=== PATIENT | male | born 1995 | race Caucasian/White ===

== ENCOUNTER 2016-05-04 12:32 | Emergency (ER) | payer SELFPAY ==
[2016-05-04 13:01] VITALS: BP 131/82
[2016-05-04 14:22] LABS: Basophils % (Auto) 0.4 % (0.0-1.8); Eosinophils % (Auto) 1.6 % (0.0-4.3); Hematocrit 45.4 % (35.5-45.6); Mean Corpuscular HGB Conc 33 % (32-34); Mean Corpuscular Hemoglobin 28 pg (28-32); Mean Corpuscular Volume 84 fl (84-94); Platelet Count 162 K/mm3 (140-440); Red Blood Count 5.39 M/mm3 (3.65-5.03); Red Cell Distribution Width 13.7 % (13.2-15.2); White Blood Count 12.8 K/mm3 (4.5-11.0)
[2016-05-04 14:54] LABS: Anion Gap 17 mmol/L; Blood Urea Nitrogen 11 mg/dL (9-20); Calcium 9.3 mg/dL (8.4-10.2); Carbon Dioxide 25 mmol/L (22-30); Chloride 103.2 mmol/L (98-107); Glucose 85 mg/dL (75-100); Sodium 141 mmol/L (137-145)
[2016-05-04 15:25] LABS: Bacteria,Urine 1+ /HPF (Negative); Bilirubin,Urine NEG (Negative); Blood,Urine NEG (Negative); Ketones,Urine NEG (Negative); Leukocyte Esterase,Urine TR (Negative); Mucus,Urine FEW /HPF; Nitrite,Urine NEG (Negative); Protein,Urine <15 mg/dL mg/dL (Negative); Urobilinogen,Urine < 2.0 mg/dL (<2.0)
--- NOTE | 2016-05-05 14:43 | ED Elopement Review ---
ED Pt Elopement review - Results review Lab results: Laboratory Tests 05/04/16 05/04/16 05/04/16 14:01 14:01 14:29 WBC 12.8 H RBC 5.39 H Hgb 15.0 Hct 45.4 MCV 84 MCH 28 MCHC 33 RDW 13.7 Plt Count 162 Lymph % (Auto) 13.9 [place] % (Auto) 4.1 Eos % (Auto) 1.6 Baso % (Auto) 0.4 Lymph # 1.8 [place] # 0.5 Eos # 0.2 Baso # 0.1 Seg Neutrophils % 80.0 H Seg Neutrophils # 10.2 H Sodium 141 Potassium 4.0 Chloride 103.2 Carbon Dioxide 25 Anion Gap 17 BUN 11 Creatinine 1.0 Estimated GFR > 60 BUN/Creatinine Ratio 11.00 Glucose 85 Calcium 9.3 Urine Color Yellow Urine Turbidity Clear Urine pH 7.0 Ur Specific [place] 1.019 Urine Protein <15 mg/dl Urine Glucose (UA) Neg Urine Ketones Neg Urine Blood Neg Urine Nitrite Neg Urine Bilirubin Neg Urine Urobilinogen < 2.0 Ur Leukocyte Esterase Tr Urine WBC (Auto) 5.0 Urine RBC (Auto) 4.0 Urine Bacteria (Auto) 1+ Urine Mucus Few - Call Back decision Pt Call Back Decision: No action required
== END 2016-05-04 20:29 | disposition left against medical advice (07) ==
LOC: ED 12:32
DX: K46.9 Unspecified abdominal hernia without obstruction or gangrene (principal); Z53.21 Procedure and treatment not carried out due to patient leaving prior to being seen by health care provider
CPT/HCPCS: 36415; 80048; 81001; 85025

== ENCOUNTER 2016-07-04 16:03 | Emergency (ER) | payer SELFPAY ==
--- NOTE | 2016-07-04 20:19 | Emergency Department Report ---
HPI - General Chief Complaint: Urogenital-Male Time Seen by Provider: 07/04/16 20:07 - HPI HPI: Patient is a 20-year-old male who presents to ED complaining of yellowish penile discharge 3 days. Patient states he had a recent sexual intercourse unprotected with a partner. Patient admits mild burning with urination. Patient denies fever/chills/nausea/vomiting status/scrotal pain or testicular pain/abdominal pain, constipation or diarrhea. ED Past Medical Hx - Past Medical History Previous Medical History?: Yes Additional medical history: right inquinal hernia - Surgical History Past Surgical History?: No - Social History Smoking Status: Current Every Day Smoker Substance Use Type: Alcohol, Marijuana - Medications Home Medications: Home Medications Medication Instructions Recorded Confirmed Last Taken Type metroNIDAZOLE [Flagyl] 500 mg PO ONCE #4 tab 07/04/16 Unknown Rx ED Review of Systems ROS: Stated complaint: ABD PAIN /GROIN PAIN Other details as noted in HPI Constitutional: denies: chills, fever Eyes: denies: eye pain, eye discharge, vision change ENT: denies: ear pain, throat pain, dental pain, hearing loss, epistaxis, congestion Respiratory: denies: cough, shortness of breath, SOB with exertion, SOB at rest , wheezing Cardiovascular: denies: chest pain, palpitations, edema Endocrine: no symptoms reported Gastrointestinal: denies: abdominal pain, nausea, vomiting, diarrhea, constipation, hematemesis, melena, hematochezia Genitourinary: denies: urgency, dysuria, frequency, hematuria, testicular pain, testicular mass Musculoskeletal: denies: back pain, joint swelling, arthralgia, myalgia Skin: denies: rash, lesions, pruritus Neurological: denies: headache, weakness, numbness, paresthesias, confusion, abnormal gait, vertigo Psychiatric: denies: anxiety, depression, auditory hallucinations, visual hallucinations, suicidal thoughts Hematological/Lymphatic: denies: easy bleeding, easy bruising, swollen glands Physical Exam - Physical Exam Vital Signs: Vital Signs 07/04/16 16:36 Temperature 98.8 F Pulse Rate 60 Respiratory 20 Rate Blood Pressure 122/72 O2 Sat by Pulse 100 Oximetry Physical Exam: GENERAL: Alert and oriented x3, no apparent distress, Normal Gait, atraumatic. HEAD: Head is normocephalic and a-traumatic. EYES: Extra ocular muscles are intact. Pupils are equal, round, and reactive to light and accommodation. EARS: symetrical, atraumatic, non tender,gross auditory nml bilaterally. NOSE: Nose symetrical, Nontender,Nares appeared normal. MOUTH:Mouth is well hydrated and without lesions. Patent airways. NECK: Supple. Non edematous, No carotid bruits. No lymphadenopathy or thyromegaly. LUNGS: Symetrical with respiration, No wheezing, no rales or crackles, CTAB. HEART: S1, S2 present, regular rate and rhythm without murmur, no rubs, no gallops. ABDOMEN: No organomegaly was noted,Positive bowel sounds, soft, and non- distended. . Nontender to palpation on all Quadrants, NO CVA tenderness. UROGENITAL: Circumcised penis, No scrotal mass, Scrotum non tender to palpation bilaterally, no hernia, no scars or penile discharge. EXTREMITIES/MUSCULOSKELETAL: No cyanosis, clubbing, rash, lesions or edema. Full ROM bilaterally. NEUROLOGIC: No focal Deficit, Cranial nerves II through XII are grossly intact. No loss of sensation, SKIN: Warm and dry, No lesions, No ulceration or induration present. ED Course Vital Signs 07/04/16 16:36 Temperature 98.8 F Pulse Rate 60 Respiratory 20 Rate Blood Pressure 122/72 O2 Sat by Pulse 100 Oximetry ED Medical Decision Making - Medical Decision Making 20-year-old female presents with STD exposure ED course: Urinalysis ordered. Urine chlamydia and gonorrhea tests ordered. UA findings show positive RBC, leukocyte esterase positive, elevated white blood cell. Discussed findings with patient. Discussed the patient he would be prophylactically treated for most common STDs which are gonorrhea, chlamydia and trichomoniasis. Patient received 250 mg of Rocephin, 1 g of azithromycin and a prescription for Flagyl 2 g Discussed home medication of metronidazole. Discussed the patient and follow up with her Department of primary care for further STD testing. Vital signs stable. Patient is in no acute distress. Critical care attestation.: If time is entered above; I have spent that time in minutes in the direct care of this critically ill patient, excluding procedure time. ED Disposition Clinical Impression: Exposure to STD, Urethritis Disposition: DISCHARGED TO HOME OR SELFCARE Is pt being admited?: No Does the pt Need Aspirin: No Condition: Stable Instructions: Nonspecific Urethritis in Men (ED), Safe Sex (ED), Sexually Transmitted Diseases (ED) Additional Instructions: Follow-up with the health department or your primary care physician. Take medication as prescribed. Prescriptions: metroNIDAZOLE [Flagyl] 500 mg PO ONCE #4 tab Referrals: PRIMARY CARE,MD [Primary Care Provider] - 3-5 Days Forms: STI Treatment and Prevention, Accompanied Note, Work/School Release Form (ED) Time of Disposition: 22:44
[2016-07-04 22:26] LABS: Bilirubin,Urine NEG (Negative); Blood,Urine NEG (Negative); Ketones,Urine NEG (Negative); Leukocyte Esterase,Urine SM (Negative); Mucus,Urine 1+ /HPF; Nitrite,Urine NEG (Negative); Protein,Urine <15 mg/dL mg/dL (Negative); Urobilinogen,Urine < 2.0 mg/dL (<2.0)
[2016-07-04] MEDS ORDERED: ZITHROMAX PO ONE (22:40)
[2016-07-04] MEDS ORDERED: XYLOCAINE 1% MPF 5 mL INFILTRATI ONE (22:40)
[2016-07-04] MEDS ORDERED: ROCEPHIN IM ONE (22:40)
[2016-07-04 23:54] VITALS: BP 120/70
== END 2016-07-04 23:16 | disposition home or self-care (01) ==
LOC: ED 16:03
DX: N34.2 Other urethritis (principal); Z20.2 Contact with and (suspected) exposure to infections with a predominantly sexual mode of transmission; F17.200 Nicotine dependence, unspecified, uncomplicated; F12.10 Cannabis abuse, uncomplicated
CPT/HCPCS: 81001; 96372; 99283; J0696

== ENCOUNTER 2017-06-06 16:14 | Emergency (ER) | payer SELFPAY ==
[2017-06-06 16:55] VITALS: BP 130/66
== END 2017-06-06 19:38 | disposition left against medical advice (07) ==
LOC: ED 16:14
DX: M25.50 Pain in unspecified joint (principal); Z53.21 Procedure and treatment not carried out due to patient leaving prior to being seen by health care provider

== ENCOUNTER 2017-06-09 00:13 | Emergency (ER) | payer SELFPAY ==
[2017-06-09 01:23] VITALS: BP 126/82
--- NOTE | 2017-06-09 01:53 | XRay Report ---
FINAL REPORT EXAM: XR KNEE 1-2V RT HISTORY: right knee pain COMPARISON: None available. FINDINGS: Two views the right knee obtained. Bony structures are intact. Joint spaces are preserved. No acute fracture dislocation. IMPRESSION: No acute bony abnormality.
== END 2017-06-09 02:00 | disposition left against medical advice (07) ==
LOC: ED 00:13
DX: M25.561 Pain in right knee (principal); Z53.21 Procedure and treatment not carried out due to patient leaving prior to being seen by health care provider

== ENCOUNTER 2017-06-10 02:56 | Emergency (ER) | payer SELFPAY ==
[2017-06-10 03:42] VITALS: BP 123/59
== END 2017-06-10 06:00 | disposition left against medical advice (07) ==
LOC: ED 02:56
DX: M25.569 Pain in unspecified knee (principal); Z53.21 Procedure and treatment not carried out due to patient leaving prior to being seen by health care provider

== ENCOUNTER 2017-07-12 08:03 | Emergency (ER) | payer SELFPAY ==
[2017-07-12 08:08] VITALS: BP 124/76
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
== END 2017-07-12 11:08 | disposition home or self-care (01) ==
LOC: ED 08:03
DX: R68.84 Jaw pain (principal); F17.200 Nicotine dependence, unspecified, uncomplicated
CPT/HCPCS: 99282

== ENCOUNTER 2017-07-22 00:30 | Emergency (ER) | payer SELFPAY ==
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
[2017-07-22] MEDS ORDERED: TORADOL IM ONE (07:36)
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
[2017-07-22 08:06] VITALS: BP 113/71
== END 2017-07-22 08:05 | disposition home or self-care (01) ==
LOC: ED 00:30
DX: R51 Headache (principal); G89.29 Other chronic pain; F17.200 Nicotine dependence, unspecified, uncomplicated; F12.10 Cannabis abuse, uncomplicated
CPT/HCPCS: 70450; 96372; 99283; J1885

== ENCOUNTER 2017-12-09 20:14 | Emergency (ER) | payer SELFPAY ==
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
[2017-12-10 06:34] VITALS: BP 103/68
== END 2017-12-10 06:00 | disposition home or self-care (01) ==
LOC: ED 20:14
DX: T50.905A Adverse effect of unspecified drugs, medicaments and biological substances, initial encounter (principal); Y92.89 Other specified places as the place of occurrence of the external cause; F17.200 Nicotine dependence, unspecified, uncomplicated; F12.10 Cannabis abuse, uncomplicated
CPT/HCPCS: 99283

== ENCOUNTER 2019-11-06 06:02 | Emergency (ER) | payer SELFPAY ==
[2019-11-06 06:17] VITALS: BP 106/75
[2019-11-06] MEDS ORDERED: LIDOCAINE (2%) 20 MG/1 ML VIAL 20 ML MDV INFILTRATI ONE (09:08)
--- NOTE | 2019-11-06 09:39 | Emergency Department Report ---
ED Laceration HPI - HPI Chief Complaint: Wound/Laceration Stated Complaint: LACERATION BEHIND KNEE Time Seen by Provider: 11/06/19 08:05 Location: Upper Extremity Severity: moderate Tetanus Status: Not up to Date Laceration Symptoms: Yes Pain, No Foreign Body Sensation, No Numbness, No Weakness Other History: 24-year-old -[place] male presents emergency department complaining of laceration to the left medial knee region after trying to jump over a fence earlier today. Reports bleeding pain which he presents for further evaluation and treatment. Ports no numbness or tingling. In the an incident occurred about 6 hours ago ED Review of Systems ROS: Stated complaint: LACERATION BEHIND KNEE Other details as noted in HPI Comment: All other systems reviewed and negative ED Past Medical Hx - Past Medical History Previous Medical History?: Yes Additional medical history: right inquinal hernia. jaw and mandible pain. h/o short term memory loss - Surgical History Past Surgical History?: No - Social History Smoking Status: Current Every Day Smoker Substance Use Type: Alcohol, Cocaine, Marijuana, Methamphetamines - Medications Home Medications: Home Medications Medication Instructions Recorded Confirmed Last Taken Type metroNIDAZOLE [Flagyl] 500 mg PO ONCE #4 tab 07/04/16 Unknown Rx Acetaminophen/Codeine [Tylenol 1 tab PO Q6H PRN #9 tab 07/12/17 Unknown Rx /Codeine # 3 tab] Ibuprofen [Motrin] 600 mg PO Q8H PRN #12 tablet 07/12/17 Unknown Rx Butalb/Acetamin/Caff 50-325-40 1 tab PO Q6HR PRN #15 tab 07/22/17 Unknown Rx [Fioricet] cephALEXin [Keflex] 500 mg PO Q6HR #20 capsule 11/06/19 Unknown Rx traMADoL [Ultram] 50 mg PO Q4HR PRN #14 tablet 11/06/19 Unknown Rx Laceration Physical Exam - Exam General: Vital signs noted. No distress. Alert and acting appropriately. Wound Length (cm): 7 Laceration Location: Lower Extremity Full Body Front + Back: 1 - Laceration to the medial aspect of the left knee Laceration Exam: Yes Normal Distal CMS, No Foreign Body, No Exposed Tendon, Vessel, or Nerve, No Tendon Injury ED Course Vital Signs 11/06/19 06:14 Temperature 98.7 F Pulse Rate 80 Respiratory 18 Rate Blood Pressure 106/75 O2 Sat by Pulse 98 Oximetry - Procedure Description Procedures done: PRE-OP DIAGNOSIS: Laceration of left leg. POST-OP DIAGNOSIS: Same. PROCEDURE: Laceration repair left leg 7 cm. Performing Physician/advanced practice provider: Deepak Whitaker_. . PROCEDURE: A timeout protocol was performed prior to initiating the procedure. The area was prepared and draped in the usual, sterile manner. The site was anesthetized with 2% lidocaine without epinephrine. Wound was irrigated with normal saline and bleeding was minimal. Wound wound was closed with 4-0 Prolene simple noted fashion x11 with no complications good wound edge approximation. Packing: None. . Followup: The patient tolerated the procedure well without complications. Standard post-procedure care is explained and return precautions are given. Critical care attestation.: If time is entered above; I have spent that time in minutes in the direct care of this critically ill patient, excluding procedure time. ED Disposition Clinical Impression: Leg laceration Disposition: DC-01 TO HOME OR SELFCARE Is pt being admited?: No Does the pt Need Aspirin: No Condition: Stable Instructions: Laceration (ED), Suture Care (ED) Additional Instructions: Please follow-up and 10 to 14 days to be evaluated for possible suture removal Prescriptions: cephALEXin [Keflex] 500 mg PO Q6HR #20 capsule traMADoL [Ultram] 50 mg PO Q4HR PRN #14 tablet PRN Reason: Pain Referrals: PRIMARY CARE, [Primary Care Provider] - 3-5 Days [facility] [Provider Group] - 3-5 Days
[2019-11-06] MEDS ORDERED: DIPHtheria,PERTUSSIS(ACELL),TETANUS VACCINE/PF 0.5 ML VIAL IM ONE (09:48)
== END 2019-11-06 10:01 | disposition home or self-care (01) ==
LOC: ED 06:02
DX: S81.012A Laceration without foreign body, left knee, initial encounter (principal); F17.200 Nicotine dependence, unspecified, uncomplicated; F12.10 Cannabis abuse, uncomplicated; Z98.890 Other specified postprocedural states; Z79.899 Other long term (current) drug therapy; X58.XXXA Exposure to other specified factors, initial encounter; Y93.89 Activity, other specified; Y92.89 Other specified places as the place of occurrence of the external cause; Y99.8 Other external cause status
CPT/HCPCS: 90471; 90715; 99282

== ENCOUNTER 2020-10-11 21:03 | Emergency (ER) | payer SELFPAY ==
[2020-10-12 00:03] VITALS: BP 124/75
[2020-10-12] MEDS ORDERED: oxyCODONE /ACETAMINOPHEN 5-325MG TAB PO ONE (02:25)
--- NOTE | 2020-10-12 02:38 | Emergency Department Report ---
ED Animal Bite HPI - General Chief Complaint: Animal Bite Stated Complaint: BITE/LEFT ARM Time Seen by Provider: 10/12/20 02:23 Source: patient Mode of arrival: Ambulatory Limitations: No Limitations - History of Present Illness MD Complaint: animal bite -: Sudden (2 days ago) Left: Hand (Hand and wrist region) Animal: dog Animal Control Notified: No Description: unknown animal Mechanism: bite Pain Description: dull Context: animals fighting (With trying to pick remover a fight between his dog and another animal) Associated Symptoms: none Treatments Prior to Arrival: wound dressing(s) - Related Data Patient Tetanus UTD: Yes Previous Rx's Medication Instructions Recorded Last Taken Type metroNIDAZOLE [Flagyl] 500 mg PO ONCE #4 tab 07/04/16 Unknown Rx Acetaminophen/Codeine [Tylenol 1 tab PO Q6H PRN #9 tab 07/12/17 Unknown Rx /Codeine # 3 tab] Ibuprofen [Motrin] 600 mg PO Q8H PRN #12 tablet 07/12/17 Unknown Rx Butalb/Acetamin/Caff 50-325-40 1 tab PO Q6HR PRN #15 tab 07/22/17 Unknown Rx [Fioricet] cephALEXin [Keflex] 500 mg PO Q6HR #20 capsule 11/06/19 Unknown Rx traMADoL [Ultram] 50 mg PO Q4HR PRN #14 tablet 11/06/19 Unknown Rx Amoxicillin/Potassium Clav 1 each PO BID #20 tablet 10/12/20 Unknown Rx [Augmentin 875-125 Tablet] Ketorolac [Toradol] 10 mg PO Q6H PRN #15 tablet 10/12/20 Unknown Rx Mupirocin [Bactroban 2%] 15 applic TP TID #15 gm 10/12/20 Unknown Rx Allergies Allergy/AdvReac Type Severity Reaction Status Date / Time No Known Allergies Allergy Verified 11/21/19 21:51 ED Review of Systems ROS: Stated complaint: BITE/LEFT ARM Other details as noted in HPI Comment: All other systems reviewed and negative ED Past Medical Hx - Past Medical History Previous Medical History?: Yes Hx Asthma: Yes Additional medical history: right inquinal hernia. jaw and mandible pain. h/o short term memory loss - Social History Smoking Status: Current Every Day Smoker Substance Use Type: Marijuana - Medications Home Medications: Home Medications Medication Instructions Recorded Confirmed Last Taken Type metroNIDAZOLE [Flagyl] 500 mg PO ONCE #4 tab 07/04/16 Unknown Rx Acetaminophen/Codeine [Tylenol 1 tab PO Q6H PRN #9 tab 07/12/17 Unknown Rx /Codeine # 3 tab] Ibuprofen [Motrin] 600 mg PO Q8H PRN #12 tablet 07/12/17 Unknown Rx Butalb/Acetamin/Caff 50-325-40 1 tab PO Q6HR PRN #15 tab 07/22/17 Unknown Rx [Fioricet] cephALEXin [Keflex] 500 mg PO Q6HR #20 capsule 11/06/19 Unknown Rx traMADoL [Ultram] 50 mg PO Q4HR PRN #14 tablet 11/06/19 Unknown Rx Amoxicillin/Potassium Clav 1 each PO BID #20 tablet 10/12/20 Unknown Rx [Augmentin 875-125 Tablet] Ketorolac [Toradol] 10 mg PO Q6H PRN #15 tablet 10/12/20 Unknown Rx Mupirocin [Bactroban 2%] 15 applic TP TID #15 gm 10/12/20 Unknown Rx ED Physical Exam - General Limitations: No Limitations General appearance: alert, in no apparent distress - Head Head exam: Present: atraumatic, normocephalic - Eye Eye exam: Present: normal appearance, PERRL Pupils: Present: normal accommodation - ENT ENT exam: Present: normal exam, mucous membranes moist - Neck Neck exam: Present: normal inspection - Respiratory Respiratory exam: Present: normal lung sounds bilaterally. Absent: respiratory distress, wheezes, rales, rhonchi - Cardiovascular Cardiovascular Exam: Present: regular rate, normal rhythm. Absent: systolic murmur, diastolic murmur, rubs, gallop - GI/Abdominal GI/Abdominal exam: Present: soft, normal bowel sounds - Rectal Rectal exam: Present: deferred - Extremities Exam Extremities exam: Present: tenderness - Expanded Upper Extremity Exam Left General: Present: other Shoulder Exam: Present: normal inspection Upper Arm exam: Present: normal inspection Hand Wrist exam: Present: tenderness, swelling, laceration Hand L/R Front: 1 - Positive: laceration Hand L/R Back: 1 - Laceration 2 - Laceration 3 - Laceration/puncture Neuro motor exam: Present: thumb adduction intact - Back Exam Back exam: Present: normal inspection - Neurological Exam Neurological exam: Present: alert, oriented X3 - Psychiatric Psychiatric exam: Present: normal affect, normal mood - Skin Skin exam: Present: warm, dry, normal color. Absent: intact (Bite wounds to the left wrist x4 wound #1 is a 2.5 cm wound #2 there is a 1.5 cm wound number 301 cm wound 4 is at one cm in), rash ED Course Vital Signs 10/11/20 23:58 Temperature 99 F Pulse Rate 65 Respiratory 18 Rate Blood Pressure 124/75 O2 Sat by Pulse 99 Oximetry Critical care attestation.: If time is entered above; I have spent that time in minutes in the direct care o f this critically ill patient, excluding procedure time. ED Disposition Clinical Impression: Dog bite, Puncture wound of skin Disposition: DC-01 TO HOME OR SELFCARE Is pt being admited?: No Does the pt Need Aspirin: No Condition: Stable Instructions: Puncture Wound, Animal Bite, Adult Prescriptions: Amoxicillin/Potassium Clav [Augmentin 875-125 Tablet] 1 each PO BID #20 tablet Mupirocin [Bactroban 2%] 15 applic TP TID #15 gm Ketorolac [Toradol] 10 mg PO Q6H PRN #15 tablet PRN Reason: Pain Referrals: DEBRA COTTRELL MD [Staff Physician] - 3-5 Days ED Medical Decision Making - Radiology Data Radiology results: report reviewed [facility] [address] [place] [address] XRay Report Signed Patient: MARIFER WOODWARD MR#: [id number] : 1995 Acct:[id number] Age/Sex: 25 / M ADM Date: 10/11/20 Loc: ED Attending Dr: Ordering Physician: MARIA DEL CARMEN KENNEY Date of Service: 10/12/20 Procedure(s): XR wrist 3+V LT Accession Number(s): [id number] cc: MARIA DEL CARMEN KENNEY Fluoro Time In Minutes: EXAMINATION: Left wrist radiograph, 3 views, 10/12/2020 CLINICAL INFORMATION: Trauma. Dog bite. COMPARISON: None. FINDINGS: There is no evidence of acute fracture or dislocation of the wrist. There is suspected subtle soft tissue injury to the wrist soft tissues. Signer Name: Rebecca Villa MD Signed: 10/12/2020 3:46 AM Workstation Name: [id number] Transcribed By: EB Dictated By: Rebecca Villa MD Electronically Authenticated By: Rebecca Villa MD Signed Date/Time: 10/12/20345 DD/ 4 TD/TT: Print Cancel
[2020-10-12] MEDS ORDERED: NEOMY 3.5 MG/BACIT 400 UNITS/POLY B 5000 UNITS/GM OINT PACKET TP ONE (03:13)
--- NOTE | 2020-10-12 03:51 | XRay Report ---
EXAMINATION: Left wrist radiograph, 3 views, 10/12/2020 CLINICAL INFORMATION: Trauma. Dog bite. COMPARISON: None. FINDINGS: There is no evidence of acute fracture or dislocation of the wrist. There is suspected subt le soft tissue injury to the wrist soft tissues. Signer Name: Rebecca Villa MD Signed: 10/12/2020 3:46 AM Workstation Name: [id number]
== END 2020-10-12 03:20 | disposition home or self-care (01) ==
LOC: ED 21:03
DX: S61.532A Puncture wound without foreign body of left wrist, initial encounter (principal); J45.909 Unspecified asthma, uncomplicated; F17.200 Nicotine dependence, unspecified, uncomplicated; F12.90 Cannabis use, unspecified, uncomplicated; Z79.899 Other long term (current) drug therapy; W54.0XXA Bitten by dog, initial encounter; Y93.89 Activity, other specified; Y92.89 Other specified places as the place of occurrence of the external cause; Y99.8 Other external cause status
CPT/HCPCS: 73110; 99283; A6250